=== PATIENT | male | born 1950 | race African-American/Black ===

== ENCOUNTER → 2016-06-15 | Day surgery (SDC) | payer MEDICARE, MEDICAID ==
[~2016-06-15] VITALS: Ht 177.8 cm; Wt 90.7 kg
[~2016-06-15] MED LIST: *morphine SULFATE 8 MG/ML PERIprocedure ONLY ONE; CEPH-459 PO; CIPR-9 PO; COLA100C3 PO; DEXAMETHASONE SOD PHOS 4 MG/ML VIAL ONE; DO NOT ADM ANY ANTICOAGULANT DRUGS XX PRN; FAMOTIDINE 20 MG/2 ML VIAL ONE; GABA300C5 PO; HYDR-2374 PO; INSULIN HUMAN REGULAR 1,000 UNITS/10 ML VIAL SQ PRN; LACTATED RINGER'S 1000 ML IV SCH; LISI-515 PO; MACR100C2 PO; METH500T3 PO; METOPROLOL TARTRATE 25 MG TAB PO PRN; MIDAZOLAM HCL 2 MG/2 ML VIAL ONE; NAPR500T PO; NIFE20 PO; ONDANSETRON HCL 4 MG/2 ML VIAL IV PUSH PRN; PERC5TAB12 PO; PHEN0.4T PO; PROPOFOL 200 MG/20 ML AMP IV ONE; RIBA200C5 PO; SODIUM CHLORID 0.9% 500 ML IV SCH; TOVI4TAB PO; TOVI8TAB PO; VESI10TA PO; ZOCO10TA PO; ceFAZolin 2 GM PREMIX 50 ML IV SCH; oxyCODONE/ACETAMINOPHEN 5 MG/325 MG TAB PO PRN
[2016-06-15 11:08] VITALS: BP 126/67; PULSE 70; RESP 16; TEMP 98.3; O2SAT 100
[2016-06-15 11:24] LABS: AUTOMATED NEUTROPHIL # 3.2 TH/MM3 (1.8-7.7); BASOPHIL % 0.5 % (0.0-2.0); EOSINOPHIL # 0.1 TH/MM3 (0-0.4); EOSINOPHIL % 1.7 % (0.0-4.0); HEMATOCRIT 32.4 % (39.0-51.0); HEMO FLAGS DIFF FINAL; LYMPH % 33.9 % (9.0-44.0); LYMPHOCYTE # 1.9 TH/MM3 (1.0-4.8); MEAN CELL VOLUME 87.9 FL (80.0-100.0); MEAN CORPUSCULAR HEMOGLOBIN 29.3 PG (27.0-34.0); MEAN CORPUSCULAR HGB CONC 33.3 % (32.0-36.0); MONO % 7.1 % (0.0-8.0); NEUT % 56.8 % (16.0-70.0); PLATELET COUNT 275 TH/MM3 (150-450); RED BLOOD COUNT 3.68 MIL/MM3 (4.50-5.90); RED CELL DISTRIBUTION WIDTH 13.4 % (11.6-17.2); WHITE BLOOD COUNT 5.6 TH/MM3 (4.0-11.0)
--- NOTE | 2016-06-15 15:27 | PD.OP ---
Operative Report Date of Surgery: Jun 15, 2016 Preoperative Diagnosis: (1) Urethral stricture Postoperative Diagnosis: (1) Urethral stricture (2) Prostate calculus Procedure: Cystoscopy, direct visual internal urethrotomy and transurethral resection of devitalized prostatic tissue with calculi Anesthesia: General Surgeon: Devendra Prado Cook Helper Juice(s): None Operation and Findings: Indication for procedure: Case of a pleasant 66-year-old gentleman with history prostate cancer with status post radiation therapy who underwent a channel TURP with evacuation of bladder calculi in January 2016. Recent cystoscopy demonstrated a bulbar urethral stricture. He presents today for cystoscopy and direct visual internal urethrotomy. Operative procedure in detail: Patient was brought to the operating suite and placed supine on the cystoscopy table. He was then placed under general anesthesia. He was then repositioned in the dorsal lithotomy position and prepped and draped in normal sterile fashion. After an appropriate time out was taken I proceeded with cystoscopic evaluation which once again demonstrated a bulbar urethral stricture that appeared to be containing a calcified center. I next utilized to direct visual internal urethrotome and cut at the 12 o'clock position to open up the stricture. Once the stricture was opened it became apparent that there were calculi extending from the stricture site proximally to within the prostatic urethra. Several of these calculi were manipulated with flexible forceps. Further inspection demonstrated a wide-open prostatic urethra with ragged hanging devitalized tissue with adherent calculi of various sizes causing occlusion within the prostatic urethra. Further passive cystoscope within the urinary bladder revealed both right and left ureteral offer sees to be correct anatomic position effluxing clear yellow urine. The cystoscope was next exchanged for the resectoscope with a 24 Hungarian cutting loop and I proceeded with transient urethral resection of the devitalized tissue within the prostatic urethra with adherent calculi. I smoothed out the prostatic urethra as much as possible. There was minimal bleeding during the procedure. The Elic evacuator was then utilized to remove the resected tissue and the resectoscope sheath subsequently removed. A 20 Hungarian 30 cc Oneill catheter was then easily placed and connected to gravity drainage with clear return. The patient tolerated the procedures without combinations was transferred to the PACU in satisfactory condition. Devendra Prado MD Jun 15, 2016 15:27
[2016-06-15 17:15] VITALS: BP 149/88; PULSE 72; RESP 16; TEMP 97.9; O2SAT 100
== END | disposition home or self-care (01) ==
LOC: HSDC 09:58
PROVIDERS: ATTEND Urology
DX: N35.9 Urethral stricture, unspecified (principal); N42.0 Calculus of prostate; I10 Essential (primary) hypertension; Z85.46 Personal history of malignant neoplasm of prostate; Z92.3 Personal history of irradiation
CPT/HCPCS: 00914; 52276; 52601; 85025; J0690; J1100; J2250; J2270; J3010; J7120

== ENCOUNTER → 2017-04-12 | Day surgery (SDC) | payer MEDICARE, MEDICAID ==
[~2017-04-12] VITALS: Ht 177.8 cm; Wt 91.3 kg
[~2017-04-12] MED LIST changes: +*morphine SULFATE 4 MG/ML PERIprocedure ONLY ONE; -*morphine SULFATE 8 MG/ML PERIprocedure ONLY ONE; +CHLORHEXIDINE GLUCONATE 2 % 1 PACK (2 CLOTHS) TOPICAL PRN; -CIPR-9 PO; +DEXAMETHASONE SOD PHOS 4 MG/ML VIAL IV ONE; -DEXAMETHASONE SOD PHOS 4 MG/ML VIAL ONE; +DO NOT ADM ANY ANTICOAGULANT DRUGS PRN; -DO NOT ADM ANY ANTICOAGULANT DRUGS XX PRN; -FAMOTIDINE 20 MG/2 ML VIAL ONE; -HYDR-2374 PO; -INSULIN HUMAN REGULAR 1,000 UNITS/10 ML VIAL SQ PRN; +LACTATED RINGER'S 1000 ML INJ 1,000 ML IV ONE; +LACTATED RINGER'S 1000 ML IV PRN; -LACTATED RINGER'S 1000 ML IV SCH; +LIDOCAINE HCL 1% PF 5 ML SYRINGE OTHER ONE; -MACR100C2 PO; -NAPR500T PO; +NAPR500T2 PO; +ONABOTULINUMTOXINA INJ 100 UNITS/VIAL SCH; +ONDANSETRON HCL 4 MG/2 ML VIAL IV ONE; -PHEN0.4T PO; +SODIUM CHLORID 0.9% 500 ML IV PRN; -SODIUM CHLORID 0.9% 500 ML IV SCH; +SODIUM CHLORIDE 0.9% 10 ML VIAL OTHER SCH; +SODIUM CHLORIDE 0.9% 20 ML VIAL ONE; -TOVI4TAB PO; -VESI10TA PO; +VESI10TA2 PO
[2017-04-12] MEDS: POVIDONE IODINE 5% (ANTISEPSIS KIT) 4 APPLICATIONS EACH NARE PRN ×2 (09:08→09:10)
[2017-04-12 09:12] LABS: AUTOMATED NEUTROPHIL # 2.3 TH/MM3 (1.8-7.7); BASOPHIL % 0.4 % (0.0-2.0); EOSINOPHIL # 0.1 TH/MM3 (0-0.4); EOSINOPHIL % 2.1 % (0.0-4.0); HEMATOCRIT 36.9 % (39.0-51.0); HEMOGLOBIN 12.3 GM/DL (13.0-17.0); LYMPH % 35.5 % (9.0-44.0); LYMPHOCYTE # 1.5 TH/MM3 (1.0-4.8); MEAN CELL VOLUME 89.8 FL (80.0-100.0); MEAN CORPUSCULAR HGB CONC 33.4 % (32.0-36.0); MEAN PLATELET VOLUME 7.7 FL (7.0-11.0); MONO % 6.9 % (0.0-8.0); MONOCYTE # 0.3 TH/MM3 (0-0.9); NEUT % 55.1 % (16.0-70.0); PLATELET COUNT 213 TH/MM3 (150-450); RED CELL DISTRIBUTION WIDTH 13.7 % (11.6-17.2); WHITE BLOOD COUNT 4.2 TH/MM3 (4.0-11.0)
--- NOTE | 2017-04-12 10:46 | PD.OP ---
Operative Report Date of Surgery: Apr 12, 2017 Preoperative Diagnosis: (1) OAB (overactive bladder) Postoperative Diagnosis: (1) OAB (overactive bladder) Procedure: Cystoscopy and intravesical Botox injection therapy Anesthesia: General Surgeon: Devendra Prado Mail Opener(s): None Operation and Findings: Indication for procedures: Case of a pleasant 66 old gentleman with history prostate cancer treated with radiation therapy back in 2014 who presents now for cystoscopy and intravesical Botox injection therapy for lower urinary tract symptoms consistent with overactive bladder. Operative procedure in detail: Patient was brought to the operating suite and placed supine on the OR table. He was then placed under general anesthesia. He was then repositioned in the dorsolithotomy position and prepped and draped in normal sterile fashion. After appropriate timeout was undertaken I proceeded with cystoscopic evaluation utilizing the rigid cystoscope with a 20 Kenyan sheath and 30 lens. The urethra was patent without stricture formation , the prostatic urethra was not obstructing and further passage of the cystoscope within urinary bladder revealed both right and left ureteral orifices to be in correct anatomic position draining clear yellow urine. There were some calcifications noted to the bladder neck region which were dislodged by virtue of passing cystoscope and these were irrigated out with the Barbara syringe. I then proceeded with intravesical injection of the Botox solution. 100 units of Botox was reconstituted in 10 cc normal saline and the bladder was injected with each injection site approximate 1 cm away from the prior site using the 5 Kenyan flexible needle. A total of 100 units were injected encompassing the posterior and lateral crowder. At the conclusion of the procedure the was some oozing of blood from the injection sites and a decision was made to place a Oneill catheter. The patient tolerated the procedures without complications and was transferred to the PACU in satisfactory condition. Devendra Prado MD Apr 12, 2017 10:46
[2017-04-12 12:20] VITALS: BP 149/81; PULSE 82; RESP 18; TEMP 97.8; O2SAT 99
--- NOTE | 2017-04-12 19:41 | EKG ---
Date Performed: 04/12/2017 Time Performed: 08:47:05 PTAGE: 66 years EKG: Sinus rhythm NORMAL ECG PREVIOUS TRACING : 01/16/2016 13.33 Since previous tracing, no significant change noted DOCTOR: Kenya Murphy Interpretating Date/Time 04/12/2017 19:39:42
== END | disposition home or self-care (01) ==
LOC: HSDC 08:08
PROVIDERS: ATTEND Urology
DX: N32.81 Overactive bladder (principal); I25.2 Old myocardial infarction; I10 Essential (primary) hypertension; E78.1 Pure hyperglyceridemia
CPT/HCPCS: 00910; 52287; 85025; 93005; J0585; J0690; J1100; J2250; J2270; J2405; J3010; J7120